=== PATIENT | female | born 1950 | race African-American/Black ===

== ENCOUNTER 2017-07-16 14:40 | Outpatient (CLI) | payer MEDICARE ==
--- NOTE | 2017-07-16 15:25 | XRay Report ---
Right knee: Pain. Standing views demonstrates mild narrowing of the medial joint compartment with smooth articular surfaces. A minimal periarticular spur is identified involving the medial plateau. There is mild narrowing between the patella and the medial femoral condyle. There is no swelling and no effusion. 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
== END 2017-07-16 14:41 | disposition home or self-care (01) ==
LOC: SPVIMAG 14:40
PROVIDERS: ATTEND Orthopaedic Surgery Sports Medicine
DX: M17.11 Unilateral primary osteoarthritis, right knee (principal); M25.861 Other specified joint disorders, right knee

== ENCOUNTER 2017-09-24 12:33 | Outpatient (CLI) | payer MEDICARE ==
--- NOTE | 2017-09-24 14:35 | XRay Report ---
Right knee 2 views. History: Knee pain. Findings: A total knee prosthesis is demonstrated in satisfactory position with no radiographic signs of complication. Soft tissue swelling is noted anteriorly consistent with postoperative changes. There are no other significant findings.
== END 2017-09-24 12:34 | disposition home or self-care (01) ==
LOC: SPVIMAG 12:33
PROVIDERS: ATTEND Orthopaedic Surgery Sports Medicine
DX: Z47.1 Aftercare following joint replacement surgery (principal); Z96.651 Presence of right artificial knee joint

== ENCOUNTER 2017-10-17 08:31 | Outpatient (CLI) | payer MEDICARE ==
--- NOTE | 2017-10-17 09:50 | XRay Report ---
XRAY RIGHT KNEE 4 THREE VIEWS: 10/17/17 CLINICAL: Right knee pain. 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 Mild varus deformity. No fracture or dislocation.No joint effusion.Stable anterior and peripatellar soft tissue edema. IMPRESSION: Status post total joint replacement with stable soft tissue edema.
== END 2017-10-17 08:32 | disposition home or self-care (01) ==
LOC: SPVIMAG 08:31
PROVIDERS: ATTEND Orthopaedic Surgery Sports Medicine
DX: M21.161 Varus deformity, not elsewhere classified, right knee (principal); Z96.651 Presence of right artificial knee joint